=== PATIENT | female | born 1980 | race Caucasian/White ===

== ENCOUNTER 2017-01-20 13:42 | Emergency (ER) | payer OTHER ==
[2017-01-20 13:54] VITALS: BP 129/76; PULSE 78; TEMP 98.1; BMI 25.0
--- NOTE | 2017-01-20 13:57 | PDOC ---
History of Present Illness - General Chief Complaint: Injury Stated Complaint: LEFT THUMB LACERATION Time Seen by Provider: 01/20/17 13:50 History Source: Patient Exam Limitations: No Limitations - History of Present Illness Initial Comments: 01/20/17 13:52 The patient is a 36-year-old female, [id number], immunocompetent, nonsmoker, who presents to the emergency department with a laceration to the volar base of her left thumb. She cut it on broken glass. She does not suspect any retained foreign body. She had immediate, mild pain. There was no pulsatile bleeding noted. She denies distal paresthesias. She is able to move the MCP joint but the IP joint. She does not recall her last tetanus vaccination. Past History - Past Medical History Allergies/Adverse Reactions: Allergies Allergy/AdvReac Type Severity Reaction Status Date / Time No Known Allergies Allergy Verified 01/20/17 13:43 Home Medications: Ambulatory Orders Amox-Tr/K Cl [Augmentin 875Mg Tablet] 1 tab PO BID #10 tablet 01/20/17 - Psycho/Social/Smoking Cessation Hx Anxiety: No Suicidal Ideation: No Smoking History: Never smoked Hx Alcohol Use: No Drug/Substance Use Hx: No Review of Systems - Review of Systems Comments:: 01/20/17 13:53 CONSTITUTIONAL: Absent: fever, chills, fatigue EYES: Absent: visual changes ENT: Absent: ear pain, sore throat CARDIOVASCULAR: Absent: chest pain, palpitations, loss of consciousness RESPIRATORY: Absent: cough, SOB GI: Absent: abdominal pain, nausea, vomiting, constipation, diarrhea GENITOURINARY: Absent: dysuria, frequency, hematuria MUSKULOSKELETAL: Absent: back pain, arthralgia, myalgia SKIN: Present: See history of present illness NEURO: Absent: headache, dizziness *Physical Exam - Vital Signs Last Vital Signs Temp Pulse Resp BP Pulse Ox 98.1 F 78 18 129/76 99 01/20/17 13:42 01/20/17 13:42 01/20/17 13:42 01/20/17 13:42 01/20/17 13:42 - Physical Exam Comments: 01/20/17 13:53 GENERAL: Well-appearing, well-nourished. No apparent distress. HEENT: Normocephalic, atraumatic. PERRL, EOM intact. CARDIOVASCULAR: Normal S1, S2. Regular rate and rhythm. PULMONARY: Clear to auscultation bilaterally. ABDOMEN: Soft, non-distended, non-tender. EXTREMITIES: Full flexion and extension at the left metacarpophalangeal joint. She is unable to move the interphalangeal joint. I explored the wound, and there is no obvious evidence of tendon disruption, though I suspect that there has been a tendon injury based on her inability to flex the joint. No gross deformities. SKIN: Linear laceration at the volar base of the left thumb, measuring approximately 1.5 cm. There is no pulsatile bleeding. Capillary refill is brisk at the distal thumb, and symmetric to the other side. NEUROLOGICAL: No focal neurological deficits. Medical Decision Making - Medical Decision Making 01/20/17 13:54 She is well-appearing and in no acute distress There is no evidence of a vascular injury or nervous injury However, there is injury evident to the flexor tendon, based on physical examination I have placed 2 sutures to close the wound Case discussed with orthopedic physician temporary administrative assistant for Dr. Armendariz She will see Dr. Quarles in the office on Sunday or Sunday for definitive repair Clinical impression: Thumb laceration Flexor tendon laceration I discussed the physical exam findings and final diagnoses with the patient. I answered all of the patient's questions. The patient was satisfied with the care received and felt comfortable with the discharge plan and treatment plan. The patient will call their primary care physician within 24 hours to arrange follow-up and will return to the Emergency Department with any new, persistent or worsening symptoms. 01/20/17 14:07 *DC/Admit/Observation/Transfer Diagnosis at time of Disposition: Laceration of thumb, Flexor tendon laceration of finger with open wound - Discharge Dispostion Disposition: HOME Condition at time of disposition: Improved - Prescriptions Prescriptions: Amox-Tr/K Cl [Augmentin 875Mg Tablet] 1 tab PO BID #10 tablet - Referrals Referrals: Bubba Quarles MD [Staff Physician] - Call tomorrow - Patient Instructions Printed Discharge Instructions: DI for Laceration Repair Additional Instructions: There is evidence that you have injured your tendon and you will need to see a hand specialist for this. Take the antibiotics as I prescribed. Return to the emergency department immediately with ANY new, persistent or worsening symptoms. You MUST call and follow up with your doctor tomorrow. Please make sure your doctor reviews the results of your emergency department evaluation.
[2017-01-20] MEDS ORDERED: DIPHTH,PERTUSS(ACELL),TET 0.5 ML DISP.SYRIN IM ONE (14:06)
== END 2017-01-20 14:30 | disposition home or self-care (01) ==
LOC: FER 13:42
PROC: 3E0234Z Introduction of Serum, Toxoid and Vaccine into Muscle, Percutaneous Approach (ICD-10-PCS; principal; 2017-01-20)
PROC: 0HQGXZZ Repair Left Hand Skin, External Approach (ICD-10-PCS; 2017-01-20)
DX: S61.012A Laceration without foreign body of left thumb without damage to nail, initial encounter (principal); S66.022A Laceration of long flexor muscle, fascia and tendon of left thumb at wrist and hand level, initial encounter; W25.XXXA Contact with sharp glass, initial encounter; Y93.9 Activity, unspecified; Y92.9 Unspecified place or not applicable
CPT/HCPCS: 90715; 99283-25